=== PATIENT | male | born 1955 | race Caucasian/White ===

== ENCOUNTER 2023-03-05 17:24 | Emergency (ER) | payer MEDICARE, OTHER ==
--- NOTE | 2023-03-05 17:27 | ERPHSYRPT ---
- History of Present Illness Time Seen by Provider: 03/05/23 17:27 Source: patient Exam Limitations: no limitations Physician History: This is a 67-year-old white male patient who is here with his family including a twin brother who he has been living with. They brought him into the emergency room because of swelling in his bilateral feet and ankles as well as increasing weakness. Patient has not seen a primary care physician in a number of years. Patient was briefly seen by Dr. Chen prior to arrival to the emergency department who sent the patient to our facility because of the swelling that is present in his feet and ankles bilaterally. Patient denies any kind of pain. Patient has no chest pain. Patient denies shortness of breath. Family states that since [place] he has had increasing weakness and he is more difficult to take care of. They were hoping that Dr. Chen could figure out a way to place him in an extended care facility or provide them with resources so they could get that work-up in progress. However she felt the patient would be best served in the emergency department. Patient only takes an Flomax for prostate issues. He is not on any other medications at this time. Timing/Duration: worse Severity: mild (Over several weeks) Associated Symptoms: denies symptoms ( to moderate) Allergies/Adverse Reactions: No Known Drug Allergies Allergy (Unverified 03/05/23 17:38) Home Medications: Tamsulosin HCl 0.4 mg [Flomax 0.4 MG] 0.4 mg PO DAILY 03/05/23 [History] Travel Risk - International Travel Have you traveled outside of the country in past 3 weeks: No - Coronavirus Screening Are you exhibiting any of the following symptoms?: No Close contact with a COVID-19 positive Pt in past 14-21 Days: No - Review of Systems Constitutional: No Symptoms, No Fever Eyes: No Symptoms Ears, Nose, & Throat: No Symptoms Respiratory: No Symptoms Cardiac: No Symptoms Abdominal/Gastrointestinal: No Symptoms Genitourinary Symptoms: No Symptoms Musculoskeletal: No Symptoms Skin: Cellulitis (Bilateral below the knee skin left worse than right) Neurological: No Symptoms Psychological: No Symptoms Endocrine: No Symptoms Hematologic/Lymphatic: No Symptoms Immunological/Allergic: No Symptoms All Other Systems: Reviewed and Negative - Past Medical History Pertinent Past Medical History: Yes History: Other (Chronic prostate issues) - Past Surgical History Past Surgical History: Yes - Nursing Vital Signs Nursing Vital Signs: Initial Vital Signs Temperature 97.6 F 03/05/23 17:40 Pulse Rate 85 03/05/23 17:40 Blood Pressure 131/79 03/05/23 17:40 O2 Sat by Pulse Oximetry 97 03/05/23 17:40 Pain Scale Pain Intensity 0 - Physical Exam General Appearance: no apparent distress, alert, anxiety Eye Exam: PERRL/EOMI, eyes nml inspection Ears, Nose, Throat Exam: normal ENT inspection, moist mucous membranes Neck Exam: normal inspection, non-tender, supple, full range of motion Respiratory Exam: normal breath sounds, lungs clear, airway intact, No chest tenderness, No respiratory distress Cardiovascular Exam: regular rate/rhythm, normal heart sounds, normal peripheral pulses Gastrointestinal/Abdomen Exam: soft, normal bowel sounds, No tenderness Rectal Exam: not done Back Exam: normal inspection, normal range of motion, No CVA tenderness, No vertebral tenderness Extremity Exam: normal range of motion, pelvis stable, pedal edema (Bilateral below the knee mid tibia with associated cellulitis left greater than right no pain present) Neurologic Exam: alert, oriented x 3, cooperative, hose handler II-XII nml as tested, normal mood/affect Skin Exam: other (See abovecellulitis) Lymphatic Exam: No adenopathy SpO2 Interpretation: normal O2 Delivery: Room Air - Course Nursing assessment & vital signs reviewed: Yes Ordered Tests: Active Orders 24 hr Category Date Time Status EKG-ER Only STAT Care 03/05/23 18:24 Active IV Insertion STAT Care 03/05/23 18:24 Active Pulse Oximetry (ED) STAT Care 03/05/23 18:24 Active CHEST 1 VIEW (PORTABLE) Stat Exams 03/05/23 18:24 Completed CBC W DIFF Stat Lab 03/05/23 18:43 Completed CMP Stat Lab 03/05/23 18:43 Completed MAGNESIUM Stat Lab 03/05/23 18:43 Completed NT PRO BNPII Stat Lab 03/05/23 18:43 Completed TROPONIN Q4H Lab 03/05/23 18:43 Completed TROPONIN Q4H Lab 03/05/23 22:30 Ordered TROPONIN Q4H Lab 03/06/23 02:30 Ordered Medication Summary Discontinued Medications Generic Name Dose Route Start Last Admin Trade Name Freq PRN Reason Stop Dose Admin Furosemide 20 mg 03/05/23 19:33 03/05/23 19:48 Furosemide 20 Mg/Vial IV 03/05/23 19:34 20 mg STAT ONE Administration Furosemide Confirm 03/05/23 19:45 Furosemide 20 Mg/Vial Administered 03/05/23 19:46 Dose 20 mg .ROUTE .[facility] ONE Levofloxacin/Dextrose 500 mg in 100 mls @ 100 mls/hr 03/05/23 19:33 03/05/23 20:56 Levofloxacin 500mg/100ml D5w IV 03/05/23 20:32 Infused STAT STA Infusion Levofloxacin/Dextrose Confirm 03/05/23 19:45 Levofloxacin 500mg/100ml D5w Administered 03/05/23 19:46 Dose 500 mg in 100 mls @ ud IV .[facility] ONE Lab/Rad Data: Laboratory Result Diagrams 03/05/23 18:43 03/05/23 18:43 Laboratory Results 03/05/23 03/05/23 03/05/23 Range/Units 18:43 18:43 18:43 WBC 6.6 (4.0-10.5) x10^3/uL RBC 4.11 (4.1-5.6) x10^6/uL Hgb 12.9 (12.5-18.0) g/dL Hct 39.7 L (42-50) % MCV 96.6 (78-100) fL MCH 31.4 (26-32) pg MCHC 32.5 (32-36) g/dL RDW 13.2 (11.5-14.0) % Plt Count 279 (150-450) x10^3/uL MPV 11.1 H (7.5-11.0) fL Gran % 57.3 (36.0-66.0) % Immature Gran % (Auto) 0.2 (0.00-0.4) % Nucleat RBC Rel Count 0.0 (0.00-0.1) % Eos # (Auto) 0.17 (0-0.5) x10^3/uL Immature Gran # (Auto) 0.01 (0.00-0.03) x10^3u/L Absolute Lymphs (auto) 1.96 (1.0-4.6) x10^3/uL Absolute Monos (auto) 0.62 (0.0-1.3) x10^3/uL Absolute Nucleated RBC 0.00 (0.00-0.01) x10^3u/L Lymphocytes % 29.9 (24.0-44.0) % Monocytes % 9.5 (0.0-12.0) % Eosinophils % 2.6 (0.00-5.0) % Basophils % 0.5 (0.0-0.4) % Absolute Granulocytes 3.77 (1.4-6.9) x10^3/uL Basophils # 0.03 (0-0.4) x10^3/uL Sodium 139 (137-145) mmol/L Potassium 4.4 (3.5-5.1) mmol/L Chloride 104 (98-107) mmol/L Carbon Dioxide 28 (22-30) mmol/L Anion Gap 12.2 (5-15) MEQ/L BUN 19 (9-20) mg/dL Creatinine 0.55 L (0.66-1.25) mg/dL Estimated GFR > 60.0 ML/MIN Glucose 98 (74-106) mg/dL Calcium 9.0 (8.4-10.2) mg/dL Magnesium 2.1 (1.6-2.3) mg/dL Total Bilirubin 0.70 (0.2-1.3) mg/dL AST 36 (17-59) U/L ALT 25 (0-50) U/L Alkaline Phosphatase 207 H (38-126) U/L Troponin I < 0.012 (0.000-0.034) ng/mL NT-Pro-B Natriuret Pep 123 (<300) pg/mL Serum Total Protein 7.7 (6.3-8.2) g/dL Albumin 3.8 (3.5-5.0) g/dL - Progress Progress: unchanged Progress Note: 03/05/23 19:16 Chest x-ray was interpreted by the radiologist and I reviewed the impression. The patient's chest x-ray shows no acute cardiopulmonary process. There are chronic features noted. 03/05/23 21:10 Patient's medical history is 1 of moderate complexity. The level of complexity and the work-up performed is based on review of the patient's past medical history, review of the patient's medication list, review of the patient's drug allergy list, history of present illness, and findings on physical examination. The work-up in this patient includes a CBC, CMP, obtaining vital signs, placement of intravenous line, troponin level, twelve-lead EKG. Patient has cellulitis. I do not feel he meets admission criteria. He is yet to be treated for his mild cellulitis is present. After several long discussions with the patient's twin brother who he lives with the family is just concerned because, although the patient condition has been present for a while, the brothers physical and medical conditions have changed such that he is having more difficulty caring for his brother. They did wait until 6:00 this evening or so to come to the emergency department for evaluation. What I have done is to provide the patient with Levaquin intravenous antibiotics and I will send a prescription for 7 more days of Levaquin. [facility] patient either home health or into an extended care facility but we did call [facility] and I left a message with program director/music director Mahnaz Acevedo at [phone]. She has not yet called back. Next, I called [facility] at [phone] and initially spoke with Carmen the nurse who transferred to completions manager Nuha who then took the phone numbers of the patient, patient's brother and family member Carmen's number after I received permission to do so. Nuha is going to contact Alesha who deals with the [facility] insurance and admission issues. The plan is for Alesha to call Remy Rogers or Carmen tomorrow morning and start interviewing the patient and researching out his options. They were all told that if Alesha does not contact them, they are to call Aliza at [facility] at 8 AM on 03/08/2023 at the [phone] number. Counseled pt/family regarding: lab results, diagnosis, need for follow-up, rad results Medical Desision Making - Independent Historian Additional History obtained from: Family - Diagnostic Testing Diagnostic test were ordered, analyzed, and reviewed by me: Yes Radiological Interpretation: Reviewed by me, Teleradiologist Report - Risk of complications The pt has a mod risk of morbidity or mortality based on: Need for prescription drug management - Departure Departure Disposition: Home Clinical Impression: Cellulitis Condition: Stable Critical Care Time: No Referrals: SHAMA RABAGO DO [Primary Care Provider] - Follow up/PCP as directed Additional Instructions: Take your antibiotics as prescribed. Alesha, from the [facility], is supposed to contact you tomorrow morning on 03/06/2023. I am not sure of the time at this point. The [facility] phone number is [phone]. If you do not hear from Alesha, call the [facility] at the number provided on 03/08/2023, at 8 AM and asked to speak with Aliza. Prescriptions: Levofloxacin [Levaquin 500 MG Tablet] 500 mg PO DAILY #7 tablet
[2023-03-05 18:46] LABS: Absolute Neutrophil Ct (ANC) 3.77 x10^3/uL (1.4-6.9); BASOPHIL % 0.5 % (0.0-0.4); Basophil (Absolute #) 0.03 x10^3/uL (0-0.4); Eosinophil % 2.6 % (0.00-5.0); Eosinophil (Absolute #) 0.17 x10^3/uL (0-0.5); Hematocrit 39.7 % (42-50); Hemoglobin 12.9 g/dL (12.5-18.0); IMMATURE GRAN # 0.01 x10^3u/L (0.00-0.03); IMMATURE GRAN % 0.2 % (0.00-0.4); Lymphocyte (Absolute #) 1.96 x10^3/uL (1.0-4.6); Lymphocytes % 29.9 % (24.0-44.0); Mean Cell Volume 96.6 fL (78-100); Mean Corpuscular Hemoglobin 31.4 pg (26-32); Mean Corpuscular Hgb Concent. 32.5 g/dL (32-36); Mean Platelet Volume 11.1 fL (7.5-11.0); Monocyte (Absolute #) 0.62 x10^3/uL (0.0-1.3); Monocytes % 9.5 % (0.0-12.0); Neutrophil % 57.3 % (36.0-66.0); Platelet Count 279 x10^3/uL (150-450); Red Blood Count 4.11 x10^6/uL (4.1-5.6); Red Cell Distribution Width 13.2 % (11.5-14.0); White Blood Count 6.6 x10^3/uL (4.0-10.5)
--- NOTE | 2023-03-05 18:51 | XRAY ---
Indication: Cough. Comparison: None Portable chest hyperinflated and clear. Heart not enlarged. Bony thorax intact with osteopenia, mild degenerative changes, and old left 9 rib fracture Impression: Nonacute hyperinflated chest with chronic features.
[2023-03-05 19:00] LABS: ALBUMIN 3.8 g/dL (3.5-5.0); ALKALINE PHOSPHATASE 207 U/L (38-126); ANION GAP 12.2 MEQ/L (5-15); BLOOD UREA NITROGEN 19 mg/dL (9-20); CHLORIDE 104 mmol/L (98-107); Carbon Dioxide 28 mmol/L (22-30); Creatinine 1 0.55 mg/dL (0.66-1.25); EST GLOMERULAR FILTRATION RATE > 60.0 ML/MIN; Glucose 98 mg/dL (74-106); MAGNESIUM 2.1 mg/dL (1.6-2.3); Potassium 4.4 mmol/L (3.5-5.1); SGOT/AST 36 U/L (17-59); SGPT/ALT 25 U/L (0-50); SODIUM 139 mmol/L (137-145); Total Protein 7.7 g/dL (6.3-8.2)
[2023-03-05 19:21] LABS: NT PRO BNPII 123 pg/mL (<300); TROPONIN < 0.012 ng/mL (0.000-0.034)
[2023-03-05] MEDS ORDERED: Levofloxacin 500MG/100ML D5W 500 MG/100 ML BAG IV STA (19:33)
[2023-03-05] MEDS ORDERED: Lasix 20 MG/2 ML IV ONE (19:33)
[2023-03-05] MEDS ORDERED: Levofloxacin 500MG/100ML D5W 500 MG/100 ML BAG IV ONE (19:45)
[2023-03-05] MEDS ORDERED: Lasix 20 MG/2 ML ONE (19:45)
[2023-03-05 21:56] VITALS: BP 109/71; PULSE 84; O2SAT 98
== END 2023-03-05 21:40 | disposition home or self-care (01) ==
LOC: ED 17:24
DX: L03.116 Cellulitis of left lower limb (principal); L03.115 Cellulitis of right lower limb; B35.6 Tinea cruris; R60.0 Localized edema; R53.1 Weakness; Z79.899 Other long term (current) drug therapy
CPT/HCPCS: 36000; 36415; 71045; 80053; 83735; 83880; 84484; 85025; 93005; 94760; 96365; 96374; 99284; J1940; J1956

== ENCOUNTER 2023-07-15 13:30 | Day surgery (SDC) | payer MEDICARE, OTHER ==
[2023-07-15] MEDS ORDERED: BUPIVACAINE 0.5% VIAL IJ ONE (13:31)
[2023-07-15] MEDS ORDERED: Depo-Medrol 40 MG/ML IM ONE (13:31)
[2023-07-15] MEDS ORDERED: Lactated Ringers 1,000 ML IV ONE (16:07)
[2023-07-15] MEDS ORDERED: DIPRIVAN 200 MG/20 ML IV ONE ×2 (16:14→16:31)
--- NOTE | 2023-07-15 20:09 | XRAY ---
Indication: Bilateral L4-S1 MBB. Intraoperative fluoroscopy provided for 1 minutes 4 seconds. 3 digital spot image submitted for interpretation demonstrates posterior needle tips projecting over the expected left and right L4-S1 nerve roots. Correlate with intraoperative findings/report.
--- NOTE | 2023-07-16 10:04 | XRAY ---
One minute and 4 seconds of fluoroscopy was used in surgery for a bilateral L4-S1 MBB.
== END 2023-07-15 16:56 | disposition home or self-care (01) ==
LOC: SDC-PAIN 13:30
PROVIDERS: ATTEND Psychiatry & Neurology Pain Medicine
DX: M47.816 Spondylosis without myelopathy or radiculopathy, lumbar region (principal)
CPT/HCPCS: 64493; 64494; 72020; 77002; J1030; J2704

== ENCOUNTER → 2023-09-01 | Day surgery (SDC) | payer MEDICARE, OTHER ==
[~2023-09-01] MED LIST: BUPIVACAINE 0.5% VIAL IJ ONE; DIPRIVAN 200 MG/20 ML IV ONE; Depo-Medrol 40 MG/ML IM ONE; Ephedrine Sulfate 50 MG/ML ONE; Lactated Ringers 1,000 ML IV ONE; PHENYLEPHRINE HCL ONE; SUBLIMAZE 100 MCG/2 ML ONE; XYLOCAINE-MPF 1% 5ML SDV IJ ONE
--- NOTE | 2023-09-01 12:09 | XRAY ---
Indication: Right L4-S1 RFA. Intraoperative fluoroscopy provided for 47 seconds. 3 digital spot image obtained left lateral decubitus submitted for interpretation demonstrates posterior needle tips projecting over the expected right L4-S1 nerve roots. Correlate with intraoperative findings/report.
--- NOTE | 2023-09-01 12:27 | XRAY ---
47 seconds of fluoroscopy was used in surgery for a right L4-S1 RFA.
== END ==
LOC: SDC-PAIN 08:50
PROVIDERS: ATTEND Psychiatry & Neurology Pain Medicine
DX: M47.816 Spondylosis without myelopathy or radiculopathy, lumbar region (principal); Z79.899 Other long term (current) drug therapy
CPT/HCPCS: 64635; 64636; 72100; 77002; J1030; J2371; J2704; J3010

== ENCOUNTER 2023-09-08 09:08 | Day surgery (SDC) | payer MEDICARE, OTHER ==
[2023-09-08] MEDS ORDERED: BUPIVACAINE 0.5% VIAL IJ ONE (09:09)
[2023-09-08] MEDS ORDERED: XYLOCAINE-MPF 1% 5ML SDV IJ ONE (09:09)
[2023-09-08] MEDS ORDERED: Depo-Medrol 40 MG/ML IM ONE (09:09)
[2023-09-08] MEDS ORDERED: Amidate 20 MG/10 ML IV ONE (10:50)
[2023-09-08] MEDS ORDERED: DIPRIVAN 200 MG/20 ML IV ONE (10:50)
--- NOTE | 2023-09-08 11:46 | XRAY ---
Indication: Left L4-S1 RFA. Intraoperative fluoroscopy provided for 1 minute 6 seconds. 5 digital spot images submitted for interpretation demonstrates posterior needle tips projecting over the expected left L4-S1 nerve roots. Correlate with intraoperative findings/report.
--- NOTE | 2023-09-08 12:22 | XRAY ---
One minute and 6 seconds of fluoroscopy was used in surgery for a left L4-S1 RFA.
[2023-09-08] MEDS ORDERED: Lactated Ringers 1,000 ML IV ONE (15:31)
== END 2023-09-08 11:40 | disposition home or self-care (01) ==
LOC: SDC-PAIN 09:08
PROVIDERS: ATTEND Psychiatry & Neurology Pain Medicine
DX: M47.817 Spondylosis without myelopathy or radiculopathy, lumbosacral region (principal); Z79.899 Other long term (current) drug therapy
CPT/HCPCS: 64635; 64636; 72100; 77002; J1030; J2704